=== PATIENT | male | born 1935 | race Caucasian/White ===

== ENCOUNTER 2018-02-19 08:08 | Day surgery (SDC) | payer MEDICARE ==
[~2018-02-19] VITALS: Ht 177.8 cm; Wt 105.7 kg
[~2018-02-19 08:08] MED LIST: ASPIRIN81 MG PO; CLOPIDOGREL75 MG PO; COQ-1030 M1 PO; CRESTOR20 MG PO; ISOSORB MONO20 MG PO; LEVOTHYROXIN50 MC1 PO; LISINOPRIL10 MG PO; MAGNESIUM250 M3; METOPROL TAR25 MG PO; MULTI PO; NIASPAN750 MG PO; PENICILLN VK500 MG PO; PROTONIX40 M2 PO; TAMSULOSIN HCL0.4 MG PO
[2018-02-19 11:44] VITALS: BP 81/48
== END 2018-02-19 12:00 | disposition home or self-care (01) ==
LOC: ENDO 08:08
PROVIDERS: ATTEND Surgery
PROC: 0DJD8ZZ Inspection of Lower Intestinal Tract, Via Natural or Artificial Opening Endoscopic (ICD-10-PCS; principal; 2018-02-19)
PROC: 0JBJ0ZZ Excision of Right Hand Subcutaneous Tissue and Fascia, Open Approach (ICD-10-PCS; 2018-02-19)
PROC: 0JB40ZZ Excision of Right Neck Subcutaneous Tissue and Fascia, Open Approach (ICD-10-PCS; 2018-02-19)
DX: Z12.11 Encounter for screening for malignant neoplasm of colon (principal); K57.30 Diverticulosis of large intestine without perforation or abscess without bleeding; D17.21 Benign lipomatous neoplasm of skin and subcutaneous tissue of right arm; D17.0 Benign lipomatous neoplasm of skin and subcutaneous tissue of head, face and neck; I10 Essential (primary) hypertension; I25.10 Atherosclerotic heart disease of native coronary artery without angina pectoris; Z87.891 Personal history of nicotine dependence
CPT/HCPCS: 21552; 26111; G0121